=== PATIENT | female | born 1945 | race Two or more races ===

== ENCOUNTER 2017-04-10 13:52 | Emergency (ER) | payer OTHER ==
[2017-04-10 13:59] VITALS: BP 149/79; PULSE 68; TEMP 98.4; BMI 27.0
--- NOTE | 2017-04-10 15:09 | PDOC ---
History of Present Illness - General Chief Complaint: Ear Problem Stated Complaint: SORE THROAT, RT EAR PAIN Time Seen by Provider: 04/10/17 15:09 History Source: Patient Exam Limitations: No Limitations - History of Present Illness Initial Comments: 04/10/17 15:09 CHIEF COMPLAINT: Throat pain HISTORY OF PRESENT ILLNESS: This is a 71 year old female with a history of HTN and hypercholesterolemia who presents for evaluation of right ear pain, throat pain, dry cough, bilateral eye redness/itching/discharge, and nasal congestion. Symptoms started about one week ago after returning from [place]. Her is being seen here with similar symptoms. She denies fevers/chills, chest pain, shortness of breath, or any other symptoms. V/s on arrival are unremarkable. Past History - Travel Traveled outside of the country in the last 30 days: Yes If so, where?: [facility] - Past Medical History Allergies/Adverse Reactions: Allergies Allergy/AdvReac Type Severity Reaction Status Date / Time naproxen [From Naprosyn] Allergy Verified 04/10/17 13:59 Home Medications: Ambulatory Orders Aspirin [Aspirin EC] 81 mg PO DAILY 07/15/16 Atorvastatin Ca [Lipitor] 20 mg PO HS 07/15/16 Calcium Carbonate/Vitamin D3 [Calcium 600 + Vit D Tablet] 1 each PO DAILY Cholecalciferol (Vitamin D3) [Vitamin D3 -] 50,000 unit PO DAILY 07/15/16 Lisinopril [Prinivil] 10 mg PO DAILY 07/15/16 Metoprolol Succinate [Toprol Xl -] 50 mg PO DAILY 07/15/16 Omeprazole 20 mg PO PRN PRN 07/15/16 Azithromycin [Zithromax Tri-Willam (3 DAYS) -] 500 mg PO DAILY #3 tablet 04/10/17 HTN: Yes Hypercholesterolemia: Yes Suicide Attempt (Hx): No - Surgical History Abdominal Surgery: Yes Appendectomy: Yes Cholecystectomy: Yes - Psycho/Social/Smoking Cessation Hx Anxiety: No Suicidal Ideation: No Smoking Status: No Smoking History: Never smoked Number of Cigarettes Smoked Daily: 0 Information on smoking cessation initiated: No Hx Alcohol Use: No Drug/Substance Use Hx: No Substance Use Type: None Review of Systems - Review of Systems Constitutional: No: Chills, Fever HEENTM: Yes: Ear Pain (right), Nose Congestion, Throat Pain Respiratory: Yes: Cough (dry) Cardiac (ROS): No: Chest Pain, Edema, Palpitations ABD/GI: No: Symptoms Reported : No: Symptoms Reported Neurological: No: Symptoms reported *Physical Exam - Vital Signs Last Vital Signs Temp Pulse Resp BP Pulse Ox 98.4 F 68 17 149/79 97 04/10/17 13:57 04/10/17 13:57 04/10/17 13:57 04/10/17 13:57 04/10/17 13:57 - Physical Exam General Appearance: Yes: Nourished, Appropriately Dressed HEENT: positive: EOMI, Pharyngeal Erythema, Nasal Congestion, Rhinorrhea, Sinus Tenderness, TM Dull (right), Other (conjunctivae injected bilaterally) Respiratory/Chest: positive: Lungs Clear, Normal Breath Sounds Cardiovascular: positive: Regular Rhythm, Regular Rate 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 1. Flu swab 2. Rapid strep 3. Tylenol #3 for pain/cough 4. Sudafed for congestion *DC/Admit/Observation/Transfer Diagnosis at time of Disposition: Bronchitis - Discharge Dispostion Disposition: HOME Condition at time of disposition: Stable Admit: No - Prescriptions Prescriptions: Azithromycin [Zithromax Tri-Willam (3 DAYS) -] 500 mg PO DAILY #3 tablet - Patient Instructions Printed Discharge Instructions: DI for Acute Bronchitis Additional Instructions: -Take antibiotics as prescribed. -Use Tobramycin drops: 1 in each eye every 4 hours. Wash sheets and pillowcases in hot water. Discard any eye makeup. -Use [id number] Sudafed as needed for congestion and Robitussin as needed for cough. -Follow up with your primary care doctor. Return here for difficulty breathing or any other concerning symptoms.
[2017-04-10] MEDS ORDERED: ACETAMINOPHEN WITH CODEINE 300MG/30MG TABLET PO ONE (15:16)
[2017-04-10] MEDS ORDERED: PSEUDOEPHEDRINE HCL 30 MG TABLET PO ONE (15:17)
[2017-04-10] MEDS ORDERED: ACETAMINOPHEN WITH CODEINE 300MG/30MG TABLET ONE (15:19)
[2017-04-10] MEDS ORDERED: PSEUDOEPHEDRINE HCL 60 MG TABLET ONE (15:29)
[2017-04-10] MEDS ORDERED: TOBRAMYCIN 0.3% OPHTH SOLN 5 ML BOTTLE OU ONE (15:41)
[2017-04-10] MEDS ORDERED: TOBRAMYCIN 0.3% OPHTH SOLN 5 ML BOTTLE ONE (15:59)
== END 2017-04-10 16:35 | disposition home or self-care (01) ==
LOC: JERFT 13:52
DX: J40 Bronchitis, not specified as acute or chronic (principal); I10 Essential (primary) hypertension; E78.00 Pure hypercholesterolemia, unspecified
CPT/HCPCS: 87070; 87430; 87804; 99281-25

== ENCOUNTER 2017-04-14 09:31 | Emergency (ER) | payer OTHER ==
[2017-04-14 09:35] VITALS: BP 145/72; PULSE 70; TEMP 98.4; BMI 26.6
--- NOTE | 2017-04-14 10:50 | PDOC ---
History of Present Illness - General Chief Complaint: Cold Symptoms Stated Complaint: cough, wants new prescription Time Seen by Provider: 04/14/17 09:52 History Source: Patient Exam Limitations: No Limitations - History of Present Illness Initial Comments: 04/14/17 10:50 Patient is a 71-year-old female, history of hypertension, was seen in the emergency department on 04/10/2017 for sore throat and cough patient was given a azithromycin 500 mg by mouth for 3 days with robitussin, states that symptoms are still persisting unable to sleep at night because of cough. Reports that symptoms started after returning from [facility], Cough is productive with green sputum. Patient denies any fever, no nausea vomiting, no constipation or diarrhea. with similar symptoms. Past Medical History: Denies. Allergies: No known allergies Medications: Azithromycin Family History: Non-contributory Social History: Denies smoking, alcohol use, or IVDU Review of Systems GENERAL/CONSTITUTIONAL: No fever or chills. No weakness. No weight change. HEAD, EYES, EARS, NOSE AND THROAT: No change in vision. No ear pain or discharge. No sore throat. CARDIOVASCULAR: No chest pain or shortness of breath. RESPIRATORY: +Cough, no wheezing, or hemoptysis. GASTROINTESTINAL: No nausea, vomiting, diarrhea or constipation. No rectal bleeding. GENITOURINARY: No dysuria, frequency, or change in urination. MUSCULOSKELETAL: No joint or muscle swelling or pain. No neck or back pain. SKIN : No rash or easy bruising. NEUROLOGIC: No headache, vertigo, loss of consciousness, or loss of sensation. PSYCHIATRIC: No depression or anxiety. ENDOCRINE: No increased thirst. No abnormal weight change. HEMATOLOGIC/LYMPHATIC: No anemia, easy bleeding, or history of blood clots. ALLERGIC/IMMUNOLOGIC: No hives or skin allergy. No latex allergy. Physical Exam: GENERAL: The patient is awake, alert, and fully oriented, in no acute distress. EYES: Pupils equal, round and reactive to light, extraocular movements intact, sclera anicteric, conjunctiva clear. ENT: Ears normal, nares patent, oropharynx clear without exudates. Moist mucous membranes. No uvula deviation NECK: Normal range of motion, supple without lymphadenopathy, JVD, or masses. LUNGS: Breath sounds equal, clear to auscultation bilaterally. No wheezes, and no crackles. HEART: Regular rate and rhythm, normal S1 and S2 without murmur, rub or gallop. ABDOMEN: Soft, nontender, normoactive bowel sounds. No guarding, no rebound. No masses. No bruising or abrasions MUSCULOSKELETAL: Normal range of motion, no edema. No clubbing or cyanosis. No cords, erythema, or tenderness. No CVA Tenderness with fist. NEUROLOGICAL: Cranial nerves II through XII grossly intact. Normal speech, normal gait. SKIN: Warm, Dry, normal turgor, no rashes or lesions noted. Past History - Past Medical History Allergies/Adverse Reactions: Allergies Allergy/AdvReac Type Severity Reaction Status Date / Time naproxen [From Naprosyn] Allergy Verified 04/14/17 09:35 Home Medications: Ambulatory Orders Aspirin [Aspirin EC] 81 mg PO DAILY 07/15/16 Atorvastatin Ca [Lipitor] 20 mg PO HS 07/15/16 Calcium Carbonate/Vitamin D3 [Calcium 600 + Vit D Tablet] 1 each PO DAILY Cholecalciferol (Vitamin D3) [Vitamin D3 -] 50,000 unit PO DAILY 07/15/16 Lisinopril [Prinivil] 10 mg PO DAILY 07/15/16 Metoprolol Succinate [Toprol Xl -] 50 mg PO DAILY 07/15/16 Omeprazole 20 mg PO PRN PRN 07/15/16 Azithromycin [Zithromax Tri-Willam (3 DAYS) -] 500 mg PO DAILY #3 tablet 04/10/17 HTN: Yes Hypercholesterolemia: Yes Suicide Attempt (Hx): No - Surgical History Abdominal Surgery: Yes Appendectomy: Yes Cholecystectomy: Yes - Psycho/Social/Smoking Cessation Hx Anxiety: No Suicidal Ideation: No Smoking Status: No Smoking History: Never smoked Number of Cigarettes Smoked Daily: 0 Information on smoking cessation initiated: No Hx Alcohol Use: No Drug/Substance Use Hx: No Substance Use Type: None *Physical Exam - Vital Signs Last Vital Signs Temp Pulse Resp BP Pulse Ox 98.4 F 70 18 145/72 99 04/14/17 09:33 04/14/17 09:33 04/14/17 09:33 04/14/17 09:33 04/14/17 09:33 ED Treatment Course - RADIOLOGY Radiology Studies Ordered: Category Date Time Status CHEST PA & LAT [RAD] Stat Radiology 04/14/17 10:11 Completed Medical Decision Making - Medical Decision Making 04/14/17 10:59 A/P: Patient with symptoms of viral illness, will DC patient home to continue [id number] cough medicine follow-up with PMD after 7 days of initial onset. Chest x-ray was performed and is negative for pneumonia. Instructions given to patient, she verbalized understanding will follow-up as instructed if symptoms persist. I discussed the physical exam findings, ancillary test results and final diagnoses with the patient. I answered all of the patient's questions. The patient was satisfied with the care received and felt comfortable with the discharge plan and treatment plan. The patient will call to arrange follow-up and will return to the Emergency Department with any new, persistent or worsening symptoms. *DC/Admit/Observation/Transfer Diagnosis at time of Disposition: Bronchitis - Discharge Dispostion Disposition: HOME Condition at time of disposition: Good Admit: No - Referrals Referrals: Pierre Chi [Primary Care Provider] - - Patient Instructions Printed Discharge Instructions: DI for Viral Upper Respiratory Infection -- Adult Additional Instructions: Keep head of bed elevated 45 when sleeping Cough medicine Cool air humidifier Followup in the primary care doctor's office if symptoms persist after 7 days. If any respiratory distress, increased cough, inability to drink, increased wheezing please return immediately to emergency department.
== END 2017-04-14 11:22 | disposition home or self-care (01) ==
LOC: JERFT 09:31
DX: J40 Bronchitis, not specified as acute or chronic (principal); I10 Essential (primary) hypertension; E78.00 Pure hypercholesterolemia, unspecified
CPT/HCPCS: 71020-TC; 99281-25

== ENCOUNTER 2017-04-17 12:20 | Emergency (ER) | payer OTHER ==
[2017-04-17 12:24] VITALS: BP 117/68; PULSE 71; TEMP 98.1; BMI 26.6
--- NOTE | 2017-04-17 13:15 | PDOC ---
History of Present Illness - General Chief Complaint: RX Refill Stated Complaint: RX REFILL Time Seen by Provider: 04/17/17 13:04 History Source: Patient Exam Limitations: No Limitations - History of Present Illness Initial Comments: 04/17/17 13:09 This is a 71-year-old woman with past medical history of hypercholesterolemia and hypertension who presents today with continued dry productive cough with yellow sputum. Her cough is worse in the morning and resolves throughout the day. She has completed the Z-Willam without any relief of cough or symptoms. She has an appointment with her primary doctor in May. Taking promethazine cough syrup with good relief. She is requesting a prescription for Phenergan cough syrup until she can see her primary doctor. She denies fevers, chest pain , shortness of breath, nausea, vomiting, dizziness. Tob- denies ETOH- denies Illicits- denies Timing/Duration: reports: other Past History - Past Medical History Allergies/Adverse Reactions: Allergies Allergy/AdvReac Type Severity Reaction Status Date / Time naproxen [From Naprosyn] Allergy Verified 04/17/17 12:24 Home Medications: Ambulatory Orders Aspirin [Aspirin EC] 81 mg PO DAILY 07/15/16 Atorvastatin Ca [Lipitor] 20 mg PO HS 07/15/16 Calcium Carbonate/Vitamin D3 [Calcium 600 + Vit D Tablet] 1 each PO DAILY Cholecalciferol (Vitamin D3) [Vitamin D3 -] 50,000 unit PO DAILY 07/15/16 Lisinopril [Prinivil] 10 mg PO DAILY 07/15/16 Metoprolol Succinate [Toprol Xl -] 50 mg PO DAILY 07/15/16 Omeprazole 20 mg PO PRN PRN 07/15/16 Phenylephrine HCl/Prometh HCl [Promethazine Vc Syrup] 10 ml PO BID #400 syrup HTN: Yes Hypercholesterolemia: Yes Suicide Attempt (Hx): No - Surgical History Abdominal Surgery: Yes Appendectomy: Yes Cholecystectomy: Yes - Psycho/Social/Smoking Cessation Hx Anxiety: No Suicidal Ideation: No Smoking Status: No Smoking History: Never smoked Number of Cigarettes Smoked Daily: 0 Information on smoking cessation initiated: No Hx Alcohol Use: No Drug/Substance Use Hx: No Substance Use Type: None Review of Systems - Review of Systems Able to Perform ROS?: Yes Is the patient limited Irish proficient: No Constitutional: No: Symptoms Reported HEENTM: No: Symptoms Reported Respiratory: Yes: See HPI Cardiac (ROS): No: Symptoms Reported ABD/GI: No: Symptoms Reported : No: Symptoms Reported Musculoskeletal: No: Symptoms Reported Integumentary: No: Symptoms Reported Neurological: No: Symptoms reported *Physical Exam - Vital Signs Last Vital Signs Temp Pulse Resp BP Pulse Ox 98.1 F 71 19 117/68 99 04/17/17 12:22 04/17/17 12:04/17/17 12:04/17/17 12:04/17/17 12:22 - Physical Exam General Appearance: Yes: Appropriately Dressed. No: Apparent Distress HEENT: positive: EOMI, RACHEL, Normal ENT Inspection Neck: positive: Trachea midline. negative: Supple Respiratory/Chest: positive: Lungs Clear, Normal Breath Sounds. negative: Chest Tender, Respiratory Distress, Accessory Muscle Use Cardiovascular: positive: Regular Rhythm, Regular Rate, S1, S2 Gastrointestinal/Abdominal: positive: Normal Bowel Sounds, Soft. negative: Tender Musculoskeletal: positive: Normal Inspection. 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 Her cough is worse in the morning and resolves throughout the day. She has completed the Z-Willam without any relief of cough or symptoms. She has an appointment with her primary doctor in May. Taking promethazine cough syrup with good relief. She is requesting a prescription for Phenergan cough syrup until she can see her primary doctor. She denies fevers, chest pain , shortness of breath, nausea, vomiting, dizziness. She is refusing chest x-ray and complete workup. Lungs clear to auscultation bilaterally speaking full sentences no wheezes. P: Will prescribe phenergan syrup with strict follow-up and return instructions. I discussed the physical exam findings, ancillary test results and final diagnoses with the patient. I answered all of the patient's questions. The patient was satisfied with the care received and felt comfortable with the discharge plan and treatment plan. The patient will call her primary doctor within 72 hours to arrange follow-up and will return to the Emergency Department with any new, persistant or worsening symptoms. *DC/Admit/Observation/Transfer Diagnosis at time of Disposition: Cough in adult - Discharge Dispostion Disposition: HOME Condition at time of disposition: Stable Admit: No - Prescriptions Prescriptions: Phenylephrine HCl/Prometh HCl [Promethazine Vc Syrup] 10 ml PO BID #400 syrup - Patient Instructions Printed Discharge Instructions: DI for Cough -- Adult
== END 2017-04-17 13:47 | disposition home or self-care (01) ==
LOC: JERFT 12:20
DX: R05 Cough (principal); E78.00 Pure hypercholesterolemia, unspecified
CPT/HCPCS: 99281-25

== ENCOUNTER 2017-12-25 10:31 | Emergency (ER) | payer OTHER ==
[2017-12-25 11:41] VITALS: TEMP 97.8; BMI 13.3
--- NOTE | 2017-12-25 12:01 | PDOC ---
History of Present Illness - General Chief Complaint: Cold Symptoms Stated Complaint: COLD LIKE SYMPTOMS Time Seen by Provider: 12/25/17 11:46 History Source: Patient - History of Present Illness Timing/Duration: reports: yesterday Severity: reports: moderate Associated Symptoms: reports: cough, earache, fever/chills. denies: muscle aches Past History - Past Medical History Allergies/Adverse Reactions: Allergies Allergy/AdvReac Type Severity Reaction Status Date / Time naproxen [From Naprosyn] Allergy Verified 12/25/17 10:48 Home Medications: Ambulatory Orders Aspirin [Aspirin EC] 81 mg PO DAILY 07/15/16 Atorvastatin Ca [Lipitor] 20 mg PO HS 07/15/16 Calcium Carbonate/Vitamin D3 [Calcium 600 + Vit D Tablet] 1 each PO DAILY Cholecalciferol (Vitamin D3) [Vitamin D3 -] 50,000 unit PO DAILY 07/15/16 Lisinopril [Prinivil] 10 mg PO DAILY 07/15/16 Metoprolol Succinate [Toprol Xl -] 50 mg PO DAILY 07/15/16 Omeprazole 20 mg PO PRN PRN 07/15/16 Phenylephrine HCl/Prometh HCl [Promethazine Vc Syrup] 10 ml PO BID #400 syrup HTN: Yes Hypercholesterolemia: Yes - Surgical History Abdominal Surgery: Yes Appendectomy: Yes Cholecystectomy: Yes - Suicide/Smoking/Psychosocial Hx Smoking Status: No Smoking History: Never smoked Number of Cigarettes Smoked Daily: 0 Hx Alcohol Use: No Drug/Substance Use Hx: No Substance Use Type: None Review of Systems - Review of Systems Constitutional: Yes: Chills, Malaise. No: Fever HEENTM: Yes: Ear Pain. No: Throat Pain Respiratory: Yes: Cough. No: Shortness of Breath Cardiac (ROS): No: Chest Pain ABD/GI: No: Diarrhea, Nausea, Vomiting *Physical Exam - Vital Signs Last Vital Signs Temp Pulse Resp BP Pulse Ox 97.8 F 101 H 28 H 88/59 99 12/25/17 11:38 12/25/17 11:38 12/25/17 11:38 12/25/17 11:38 12/25/17 11:38 - Physical Exam General Appearance: Yes: Appropriately Dressed. No: Apparent Distress HEENT: positive: Normal Voice Neck: positive: Supple Respiratory/Chest: positive: Lungs Clear, Normal Breath Sounds. negative: Respiratory Distress Cardiovascular: positive: Regular Rate, S1, S2 Integumentary: positive: Dry, Warm Neurologic: positive: Fully Oriented, Alert, Normal Mood/Affect ED Treatment Course - RADIOLOGY Radiology Studies Ordered: Category Date Time Status CHEST PA & LAT [RAD] Stat Radiology 12/25/17 11:47 Ordered Medical Decision Making - Medical Decision Making 12/25/17 11:54 72 yo F, denies any past medical history here with malaise with productive cough with right ear pain since last night. + chills, no fever, sore throat, shortness of breath, chest pain, nausea, vomiting or diarrhea. No known sick contacts. No recent travel. Patient tachypneic to 28 and mildly tachycardic to 101 at triage, but appears comfortable and in no apparent distress in ER with clear chest, lungs. Suspect viral etiology at this time but will get chest x-ray. Rpt vitals 12/25/17 12:41 CXR negative for acute pathology. Rpt vitals wnl with no intervention. Stable for dc w/ supportive tx and pmd f/u as needed *DC/Admit/Observation/Transfer Diagnosis at time of Disposition: Viral syndrome - Discharge Dispostion Disposition: HOME Condition at time of disposition: Good - Referrals - Patient Instructions Printed Discharge Instructions: DI for Viral Syndrome Additional Instructions: Your cxr was negative for any infection. The cause of your symptoms is most likely viral. Rest and plenty of fluids and take Tylenol as needed for pain - Post Discharge Activity
[2017-12-25 12:40] VITALS: BP 131/70; PULSE 84
== END 2017-12-25 12:49 | disposition home or self-care (01) ==
LOC: JERFT 10:31
DX: B34.9 Viral infection, unspecified (principal); I10 Essential (primary) hypertension; E78.00 Pure hypercholesterolemia, unspecified
CPT/HCPCS: 71046-TC-FY; 99281-25

== ENCOUNTER 2018-02-21 16:59 | Emergency (ER) | payer OTHER ==
[2018-02-21 17:05] VITALS: BMI 44.4
--- NOTE | 2018-02-21 17:43 | PDOC ---
History of Present Illness - General Chief Complaint: Pain Stated Complaint: PAIN Time Seen by Provider: 02/21/18 17:20 History Source: Patient, Spouse Exam Limitations: Language Barrier - History of Present Illness Initial Comments: 02/21/18 17:37 HPI: *Patient's translated Patient is a 72 year old female with no significant PMH presenting to ED for injection of a medication [facility] and for L hip pain radiating down to the calf. Patient states the pain started 1 month ago when she was [facility]. Patient returned yesterday. Pain is worse when she walks, gets better with rest. She was given medications for the pain which does help, but the pain has not gone away. Patient rates the pain 6/10. She feels weaker on the L side compared to the R. She denies injury, fever, chills, SOB, chest pain, abdominal pain, N/V/D, numbness/tingling, swelling. Denies history of blood clots PMH: As per HPI. PSH: None Meds: Allergies: Naproxen Past History - Travel If so, where?: [facility] - Past Medical History Allergies/Adverse Reactions: Allergies Allergy/AdvReac Type Severity Reaction Status Date / Time naproxen [From Naprosyn] Allergy Verified 02/21/18 17:00 Home Medications: Ambulatory Orders NK [No Known Home Medication] 02/21/18 HTN: Yes Hypercholesterolemia: Yes - Surgical History Abdominal Surgery: Yes Appendectomy: Yes Cholecystectomy: Yes - Suicide/Smoking/Psychosocial Hx Smoking Status: No Smoking History: Never smoked Have you smoked in the past 12 months: No Number of Cigarettes Smoked Daily: 0 Information on smoking cessation initiated: No Hx Alcohol Use: No Drug/Substance Use Hx: No Substance Use Type: None Review of Systems - Review of Systems Able to Perform ROS?: Yes Comments:: 02/21/18 17:45 *Patient's translated ROS: Constitutional: No fevers, chills, fatigue, malaise HEENT: No Rhinorrhea, nasal congestion, visual changes Cardiovascular: No chest pain, syncope, palpitations, lightheadedness Respiratory: No Cough, SOB, Hemoptysis, Gastrointestinal: No Abdominal pain, Nausea, Vomiting, Constipation, Diarrhea, Melena Genitourinary: No Dysuria Musculoskeletal: L hip pain radiating down to calf Neurologic: L leg weakness. No Headache, Dizziness, Numbness, Tingling 02/21/18 18:16 *Physical Exam - Vital Signs Last Vital Signs Temp Pulse Resp BP Pulse Ox 98.7 F 61 18 130/86 98 02/21/18 16:59 02/21/18 16:59 02/21/18 16:59 02/21/18 16:59 02/21/18 16:59 - Physical Exam Comments: 02/21/18 17:50 Physical Exam: General Appearance: Patient sitting comfortably in chair. No Apparent Distress HEENT: EOMI, RACHEL. No Pharyngeal Erythema, Tonsillar Exudate, Tonsillar Erythema Respiratory/Chest: Lungs Clear, Normal Breath Sounds. No Crackles, Rales, Rhonchi, Wheezing Cardiovascular: Regular Rhythm, Regular Rate, Peripheral pulses palpable bilaterally. No JVD, Murmur, Gallops, Rubs Gastrointestinal/Abdominal: Normal Bowel Sounds, Soft. No Guarding, Rebound, Tenderness Musculoskeletal: L hip pain upon palpation of ischial spine. No left leg tenderness, no joint swelling, no calf erythema or edema. No leg length discrepancy. 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 Patellar reflex intact. Negative straight leg raise on R and L side. 02/21/18 18:25 Medical Decision Making - Medical Decision Making 02/21/18 18:22 Patient is a 72 year old female with no significant PMH presenting to ED with L hip pain radiating down to the L calf x 1month. No injury, numbness, tingling, swelling, erythema, muscle tenderness. Hip is tender. DDX: osteonecrosis, occult hip fracture, rchanteric bursitis, sciatica, Patient is afebrile, normotensive and HR is wnl. No concern for infectious process. Most likely discharge home in stable condition. Xray results pending. Patient signed out to Dr. Valero 02/21/18 18:56 *DC/Admit/Observation/Transfer Diagnosis at time of Disposition: Hip pain Qualifiers: Laterality: left Qualified Code(s): M25.552 - Pain in left hip - Discharge Dispostion Disposition: HOME Condition at time of disposition: Stable - Referrals Referrals: France Ramirez MD [Primary Care Provider] - - Patient Instructions Additional Instructions: You were seen here today for left hip pain. We gave you Tylenol and a Lidoderm patch in the emergency department to help with pain. You can keep taking Tylenol for pain control. The Xray of your hip showed PENDING Please come back to the emergency department if your pain gets worse, if you fall, or if you develop a new symptom. Please follow up with your primary care doctor. Thank you - Post Discharge Activity
[2018-02-21] MEDS ORDERED: ACETAMINOPHEN 1000 MG/100 ML VIAL (NON FORMULARY) IVPB ONE (18:11)
[2018-02-21] MEDS ORDERED: ACETAMINOPHEN 500 MG TABLET (FP) PO ONE (18:19)
[2018-02-21] MEDS ORDERED: ACETAMINOPHEN 325 MG TABLET (FP) PO ONE (18:20)
[2018-02-21] MEDS ORDERED: ACETAMINOPHEN 325 MG TABLET (FP) ONE (18:21)
[2018-02-21] MEDS ORDERED: LIDOCAINE 5% TOPICAL PATCH TP ONE (18:48)
[2018-02-21] MEDS ORDERED: LIDOCAINE 5% TOPICAL PATCH ONE (18:58)
--- NOTE | 2018-02-21 18:58 | PDOC ---
*Physical Exam - Vital Signs Last Vital Signs Temp Pulse Resp BP Pulse Ox 98.7 F 61 18 130/86 98 02/21/18 16:59 02/21/18 16:59 02/21/18 16:59 02/21/18 16:59 02/21/18 16:59 ED Treatment Course - Medications Given in the ED: ED Medications Discontinued Medications Generic Name Dose Route Start Last Admin Trade Name King PRN Reason Stop Dose Admin Acetaminophen 0 mg 02/21/18 18:11 02/21/18 18:26 Ofirmev Injection - IVPB 02/21/18 18:12 Not Given ONCE ONE Acetaminophen 500 mg 02/21/18 18:19 02/21/18 18:27 Tylenol - PO 02/21/18 18:20 Not Given ONCE ONE Acetaminophen 650 mg 02/21/18 18:20 02/21/18 18:26 Tylenol - PO 02/21/18 18:21 650 mg ONCE ONE Administration Medical Decision Making - Medical Decision Making Pt signed out by Dr. Allen during shift change. You were seen here today for left hip pain. We gave you Tylenol and a Lidoderm patch in the emergency department to help with pain. You can keep taking Tylenol for pain control. The Xray of your hip was negative as read by Dr. Martinez. Please come back to the emergency department if your pain gets worse, if you fall, or if you develop a new symptom. Please follow up with your primary care doctor. Thank you 02/21/18 18:58 Pt x-ray read as negative by Dr. Martinez. Possible calcification near R iliac crest. Pt can follow-up with orthopedics if concerned. 02/21/18 20:59 *DC/Admit/Observation/Transfer Diagnosis at time of Disposition: Hip pain Qualifiers: Laterality: left Qualified Code(s): M25.552 - Pain in left hip - Discharge Dispostion Disposition: HOME Condition at time of disposition: Stable Decision to Admit order: No - Referrals Referrals: France Ramirez MD [Primary Care Provider] - Clark Hopkins MD [Staff Physician] - - Patient Instructions Additional Instructions: You were seen here today for left hip pain. We gave you Tylenol and a Lidoderm patch in the emergency department to help with pain. You can keep taking Tylenol for pain control. The Xray of your hip did not show any fractures. Please come back to the emergency department if your pain gets worse, if you fall, or if you develop a new symptom. Please follow up with your primary care doctor and the orthopedic clinic if pain persists. Thank you - Post Discharge Activity
[2018-02-21 21:25] VITALS: BP 146/60; PULSE 56; TEMP 98.2
[2018-02-21] MEDS ORDERED: LIDOCAINE PATCH REMOVAL MC SCH (22:00)
== END 2018-02-21 21:25 | disposition home or self-care (01) ==
LOC: JER 16:59
DX: M25.552 Pain in left hip (principal)
CPT/HCPCS: 73523-TC-FY; 99283-25

== ENCOUNTER 2018-08-15 08:07 | Emergency (ER) | payer OTHER ==
[2018-08-15 08:28] VITALS: BP 157/75; PULSE 72; TEMP 97.8; BMI 27.6
--- NOTE | 2018-08-15 08:51 | PDOC ---
History of Present Illness - General Chief Complaint: Back Pain Stated Complaint: PAIN Time Seen by Provider: 08/15/18 08:30 History Source: Patient Exam Limitations: No Limitations - History of Present Illness Initial Comments: 08/15/18 08:58 Pt is a 72 y/o F who presents to the ED with low back pain radiating down to her L leg for the past 3 weeks. Pt states she has a hx of sciatica with her last flare in 02/24. She states that her symptoms came on after walking. Her tried to massage her spasm, and she states that pain got worse after that. She is not taking any medication at home for her pain. Denies fevers, chills, pain with urination, frequency, urgency, hematuria, nausea, vomiting, weakness to the extremities, numbness to the extremities, bladder/bowel incontinence and saddle anesthesia. Past History - Travel Traveled outside of the country in the last 30 days: No Close contact w/someone who was outside of country & ill: No - Past Medical History Allergies/Adverse Reactions: Allergies Allergy/AdvReac Type Severity Reaction Status Date / Time naproxen [From Naprosyn] Allergy Verified 08/15/18 08:25 Home Medications: Ambulatory Orders Cyclobenzaprine HCl 5 mg PO HS #10 tablet 08/15/18 Lidocaine 5% Patch [Lidoderm -] 1 patch TP DAILY #7 patch 08/15/18 Methylprednisolone [Medrol Dose Willam] 4 mg PO ASDIR #21 tablet 08/15/18 COPD: No HTN: Yes Hypercholesterolemia: Yes - Surgical History Abdominal Surgery: Yes Appendectomy: Yes Cholecystectomy: Yes - Suicide/Smoking/Psychosocial Hx Smoking Status: No Smoking History: Never smoked Have you smoked in the past 12 months: No Number of Cigarettes Smoked Daily: 0 Information on smoking cessation initiated: No Hx Alcohol Use: No Drug/Substance Use Hx: No Substance Use Type: None Review of Systems - Review of Systems Able to Perform ROS?: Yes Comments:: 08/15/18 08:57 CONSTITUTIONAL: Absent: fever, chills, diaphoresis, generalized weakness, malaise, loss of appetite GASTROINTESTINAL: Absent: abdominal pain, abdominal distension, nausea, vomiting, diarrhea, constipation, melena, hematochezia GENITOURINARY: Absent: dysuria, frequency, urgency, hesitancy, hematuria, flank pain, genital pain MUSCULOSKELETAL: Present: low back pain Absent: arthralgia, joint swelling SKIN: Absent: rash, itching, pallor NEUROLOGIC: Absent: headache, focal weakness or paresthesias, dizziness, unsteady gait, seizure, mental status changes, bladder or bowel incontinence PSYCHIATRIC: Absent: anxiety, depression, suicidal or homicidal ideation, hallucinations. Is the patient limited Georgian proficient: No *Physical Exam - Vital Signs Last Vital Signs Temp Pulse Resp BP Pulse Ox 97.8 F 72 18 157/75 96 08/15/18 08:26 08/15/18 08:26 08/15/18 08:26 08/15/18 08:26 08/15/18 08:26 - Physical Exam Comments: 08/15/18 08:57 GENERAL: Well developed, well nourished. Awake and alert. No acute distress. NECK: Supple. Full ROM. No JVD. Carotid pulses 2+ and symmetric, without bruits. No thyromegaly. No lymphadenopathy. MUSCULOSKELETAL TTP of the L paraspinous muscles, L2-S1, with palpable knot consistent with muscle spasm. (+) straight leg raise on the left. Decreased ROM of the back d.t pain. No midline tenderness. Calves and thighs are soft and with out pain. Normal range of motion at all other joints. No bony deformities or tenderness. No CVA tenderness. EXTREMITIES: No cyanosis. No clubbing. No edema. No calf tenderness. SKIN: Warm and dry. Normal capillary refill. No rashes. No jaundice. NEUROLOGICAL: Alert, awake, appropriate. Cranial nerves 2-12 intact. No deficits to light touch and temperature in face, upper extremities and lower extremities. No motor deficits in the in face, upper extremities and lower extremities. Normoreflexic in the upper and lower extremities. Normal speech. Toes are down- going bilaterally. Gait is normal without ataxia. PSYCHIATRIC: Cooperative. Good eye contact. Appropriate mood and affect. Moderate Sedation - Procedure Monitoring Vital Signs: Procedure Monitoring Vital Signs Temperature 97.8 F 08/15/18 08:26 Pulse Rate 72 08/15/18 08:26 Respiratory Rate 18 08/15/18 08:26 Blood Pressure 157/75 08/15/18 08:26 O2 Sat by Pulse Oximetry (%) 96 08/15/18 08:26 Medical Decision Making - Medical Decision Making 08/15/18 08:57 Pt is a 72 y/o F who presents to the ED with low back pain radiating down to her leg for the past 3 weeks. Pt states she has a hx of sciatica. -Pt with TTP of the L paraspinous muscles, L2-S1, with palpable knot consistent with muscle spasm. (+) straight leg raise on the left. -No trauma, or fever. No saddle anesthesia or bladder/bowel incontinence. No CVA tenderness or rash. -Pt is neurologically intact on exam with no focal findings. -Tramadol given with relief of symptoms -DC home. Ortho follow up given for if symptoms do not resolve. -I discussed the physical exam findings, ancillary test results and final diagnoses with the patient. I answered all of the patient's questions. The patient was satisfied with the care received and felt comfortable with the discharge plan and treatment plan. The Patient agrees to follow up with the primary care physician/specialist within 24-72 hours. Return precautions were given. *DC/Admit/Observation/Transfer Diagnosis at time of Disposition: Left low back pain Qualifiers: Chronicity: acute Sciatica presence: with sciatica Sciatica laterality: sciatica of left side Qualified Code(s): M54.42 - Lumbago with sciatica, left side - Discharge Dispostion Disposition: HOME Condition at time of disposition: Stable Decision to Admit order: No - Prescriptions Prescriptions: Cyclobenzaprine HCl 5 mg PO HS #10 tablet Methylprednisolone [Medrol Dose Willam] 4 mg PO ASDIR #21 tablet - Referrals Referrals: France Ramirez MD [Primary Care Provider] - Vickey Garner MD, FAANS [Staff Physician] - - Patient Instructions Printed Discharge Instructions: DI for Back Pain With Sciatica Additional Instructions: You have low back pain and sciatica due to a muscle spasm. Please take the prednisone as directed. You were also prescribed Flexeril. Please take this medication every 8 hours for the first day. Then take the medication before you go to bed. Do not drive after taking this medication as it may make you sleepy. You may use warm compresses on your back to help with your symptoms. Please follow-up with your primary care doctor. If your symptoms do not resolve in 3-5 days, follow-up with orthopedics. A referral has been provided for you. Return to the emergency department if you have worsening back pain, bladder or bowel incontinence, numbness and tingling in her legs, changes in the way you walk, or any new or worsening symptoms. Tiene dolor lumbar y citica debido a un espasmo muscular. Por favor tome la prednisona segn las indicaciones. Tambin te recetaron Flexeril. [place] medicamento cada 8 horas sonia el primer da. Luego tome el medicamento antes de irse a la cama. No maneje despus de [place] medicamento, ya que puede causarle sueo. Puede usar compresas tibias en la espalda para ayudar con jennifer sntomas. Por favor eve un seguimiento con clark mdico de atencin primaria. Si jennifer sntomas no se resuelven en 3-5 castro, eve un seguimiento con ortopedia. Se moody proporcionado patricia referencia para usted. Regrese a la jovi de emergencias si tiene empeoramiento del dolor de espalda, incontinencia de la vejiga o el intestino, entumecimiento y hormigueo en las piernas, cambios en la forma en que camina, o cualquier sntoma nuevo o que empeora. Print Language: GUINEAN - Post Discharge Activity
[2018-08-15] MEDS ORDERED: traMADol HCL 50 MG TABLET PO ONE (08:54)
[2018-08-15] MEDS ORDERED: LIDOCAINE 5% TOPICAL PATCH TP ONE (09:00)
[2018-08-15] MEDS ORDERED: LIDOCAINE 5% TOPICAL PATCH ONE (09:04)
[2018-08-15] MEDS ORDERED: traMADol HCL 50 MG TABLET ONE (09:05)
[2018-08-15] MEDS ORDERED: LIDOCAINE PATCH REMOVAL MC SCH (22:00)
== END 2018-08-15 09:27 | disposition home or self-care (01) ==
LOC: JERFT 08:07 → JER 08:07 → JERFT 09:27
DX: M54.42 Lumbago with sciatica, left side (principal); I10 Essential (primary) hypertension; E78.00 Pure hypercholesterolemia, unspecified
CPT/HCPCS: 99281-25

== ENCOUNTER → 2020-11-14 | Day surgery (SDC) | payer OTHER | END | disposition home or self-care (01) | LOC: JRADIR 11:06 | PROVIDERS: ATTEND Internal Medicine Endocrinology, Diabetes & Metabolism | PROC: 0G9K3ZX Drainage of Thyroid Gland, Percutaneous Approach, Diagnostic (ICD-10-PCS; principal; 2020-11-14) | DX: E04.1 Nontoxic single thyroid nodule (principal) | CPT/HCPCS: 10005; 76942; 88173; 88305-TC ==

== ENCOUNTER 2021-01-06 22:08 | Emergency (ER) | payer OTHER ==
[2021-01-06 22:27] VITALS: BP 175/73; PULSE 77; TEMP 98.6; BMI 31.4
[2021-01-06] MEDS ORDERED: TRANEXAMIC ACID 1000 MG/10 ML VIAL IVPUSH ONE (22:41)
[2021-01-06] MEDS ORDERED: TRANEXAMIC ACID 1000 MG/10 ML VIAL ONE (22:47)
[2021-01-06] MEDS ORDERED: OXYMETAZOLINE 0.05% NASAL SOLUTION 15 ML BOTTLE NS ONE (23:24)
== END 2021-01-07 01:08 | disposition home or self-care (01) ==
LOC: JER 22:08
PROC: 3E033GC Introduction of Other Therapeutic Substance into Peripheral Vein, Percutaneous Approach (ICD-10-PCS; principal; 2021-01-06)
DX: R04.0 Epistaxis (principal)
CPT/HCPCS: 99284-25

== ENCOUNTER 2021-02-26 14:29 | Emergency (ER) | payer OTHER ==
[2021-02-26 14:48] VITALS: BP 146/77; PULSE 56; TEMP 98.2; BMI 31.3
== END 2021-02-26 16:55 | disposition home or self-care (01) ==
LOC: JER 14:29
DX: R04.0 Epistaxis (principal)
CPT/HCPCS: 99281-25

== ENCOUNTER 2022-09-15 21:26 | Observation (INO) | payer OTHER ==
[2022-09-15] MEDS ORDERED: MAG HYDROX/AL HYDROX/SIMETH 30 ML UNIT-DOSE CUP PO ONE (22:58)
[2022-09-15] MEDS ORDERED: FAMOTIDINE 20 MG/50 ML IVPB 20 MG/50 ML MG IVPB ONE ×2 (22:58→23:31)
[2022-09-15] MEDS ORDERED: ONDANSETRON 4 MG/2 ML VIAL IVPUSH ONE (22:59)
[2022-09-15 23:31] LABS: BASO % 0.2 % (0-2.0); EOS % 0.4 % (0-4.5); HEMATOCRIT 39.6 % (32.4-45.2); HEMOGLOBIN 13.7 GM/dL (10.7-15.3); LYMPH % 20.1 % (8-40); MCH 30.3 pg (25.7-33.7); MCHC 34.7 g/dl (32.0-36.0); MEAN CELL VOLUME 87.6 fl (80-96); MEAN PLT VOLUME 7.8 fl (7.5-11.1); MONO % 7.5 % (3.8-10.2); NEUT % 71.8 % (42.8-82.8); PLATELET COUNT 278 10^3/uL (134-434); RBC 4.53 M/mm3 (3.60-5.2); RDW 13.8 % (11.6-15.6); WHITE BLOOD COUNT 8.8 K/mm3 (4.0-10.0)
[2022-09-15] MEDS ORDERED: MAG HYDROX/AL HYDROX/SIMETH 30 ML UNIT-DOSE CUP ONE (23:31)
[2022-09-15] MEDS ORDERED: ONDANSETRON 4 MG/2 ML VIAL ONE (23:31)
[2022-09-15 23:52] LABS: CALCIUM 9.6 mg/dL (8.5-10.1)
[2022-09-15 23:53] LABS: BLOOD UREA NITROGEN 17.3 mg/dL (7-18)
[2022-09-15 23:57] LABS: TOT PROT 7.7 g/dl (6.4-8.2)
[2022-09-15 23:58] LABS: BILIRUBIN,TOTAL 0.9 mg/dL (0.2-1)
[2022-09-16 00:29] LABS: PH,URINE 7.5 (5.0-8.0); URINE APPEARANCE CLEAR; URINE BILIRUBIN NEGATIVE (NEGATIVE); URINE COLOR YELLOW; URINE GLUCOSE (UA) NEGATIVE (NEGATIVE); URINE KETONE NEGATIVE (NEGATIVE); URINE LEUK ESTERASE NEGATIVE (NEGATIVE); URINE NITRITE NEGATIVE (NEGATIVE); URINE PROTEIN NEGATIVE (NEGATIVE); URINE UROBILINOGEN 0.2 mg/dL (0.2-1.0)
[2022-09-16] MEDS ORDERED: ACETAMINOPHEN 1000 MG/100 ML BAG IVPB PRN (02:00)
[2022-09-16 06:49] LABS: BASO % 0.3 % (0-2.0); EOS % 0.9 % (0-4.5); HEMATOCRIT 38.6 % (32.4-45.2); HEMOGLOBIN 13.3 GM/dL (10.7-15.3); MCH 29.8 pg (25.7-33.7); MCHC 34.4 g/dl (32.0-36.0); MEAN CELL VOLUME 86.7 fl (80-96); MEAN PLT VOLUME 8.4 fl (7.5-11.1); MONO % 8.2 % (3.8-10.2); NEUT % 54.6 % (42.8-82.8); PLATELET COUNT 268 10^3/uL (134-434); RBC 4.46 M/mm3 (3.60-5.2); RDW 13.9 % (11.6-15.6); WHITE BLOOD COUNT 6.7 K/mm3 (4.0-10.0)
[2022-09-16 07:08] LABS: INR 1.13 (0.83-1.09); PROTHROMBIN TIME (PATIENT) 13.1 SEC (9.7-13.0)
[2022-09-16 07:10] LABS: ACTIVATED PTT 29.5 SECONDS (25.2-36.5)
[2022-09-16 07:19] LABS: CALCIUM 9.3 mg/dL (8.5-10.1); MAGNESIUM 2.4 mg/dL (1.8-2.4)
[2022-09-16 07:22] LABS: PHOSPHOROUS 4.7 mg/dL (2.5-4.9)
[2022-09-16 07:23] LABS: CREATININE 0.9 mg/dL (0.55-1.3)
[2022-09-16] MEDS ORDERED: amLODIPine BESYLATE 5 MG TABLET (FP) ONE (09:04)
[2022-09-16] MEDS ORDERED: POLYETHYLENE GLYCOL (HEALTHYLAX) 3350 17 GM PACKET ONE (09:04)
[2022-09-16] MEDS ORDERED: HYDROCHLOROTHIAZIDE 25 MG TABLET (FP) ONE (09:04)
[2022-09-16] MEDS ORDERED: LEVOTHYROXINE NA 25 MCG TABLET (FP) ONE (09:04)
[2022-09-16] MEDS ORDERED: LOSARTAN POTASSIUM 50 MG TABLET ONE (09:04)
[2022-09-16] MEDS ORDERED: PANTOPRAZOLE SODIUM 40 MG VIAL ONE (09:04)
[2022-09-16] MEDS: POLYETHYLENE GLYCOL (HEALTHYLAX) 3350 17 GM PACKET PO SCH ×3 (09:12→22:46)
[2022-09-16] MEDS: LEVOTHYROXINE NA 25 MCG TABLET (FP) PO SCH (09:12)
[2022-09-16] MEDS: LOSARTAN POTASSIUM 50 MG TABLET PO SCH (09:12)
[2022-09-16] MEDS: amLODIPine BESYLATE 5 MG TABLET (FP) PO SCH (09:12)
[2022-09-16] MEDS: HYDROCHLOROTHIAZIDE 25 MG TABLET (FP) PO SCH (09:12)
[2022-09-16] MEDS ORDERED: PATIENT'S OWN MEDICATION (NON-FORMULARY) (Losartan/Hydrochlorothiazide [Losartan-Hctz 100- PO SCH (10:00)
[2022-09-16] MEDS ORDERED: PANTOPRAZOLE SODIUM 40 MG VIAL IVPUSH SCH (10:00)
[2022-09-16] MEDS: PANTOPRAZOLE 40 MG TABLET PO SCH (13:16)
[2022-09-16 13:29] VITALS: BMI 27.2
[2022-09-16] MEDS: ATORVASTATIN CA 20 MG TABLET (FP) PO SCH (22:46)
[2022-09-17] MEDS ORDERED: ACETAMINOPHEN 325 MG TABLET (FP) PO PRN (01:54)
[2022-09-17] MEDS: LEVOTHYROXINE NA 25 MCG TABLET (FP) PO SCH (07:09)
[2022-09-17] MEDS: POLYETHYLENE GLYCOL (HEALTHYLAX) 3350 17 GM PACKET PO SCH ×3 (07:10→22:21)
[2022-09-17] MEDS ORDERED: INSULIN (LEVEMIR) 100 UNITS/ML UNITS SQ ONE (08:22)
[2022-09-17] MEDS: LOSARTAN POTASSIUM 50 MG TABLET PO SCH (09:00)
[2022-09-17] MEDS: PANTOPRAZOLE 40 MG TABLET PO SCH (09:00)
[2022-09-17] MEDS: HYDROCHLOROTHIAZIDE 25 MG TABLET (FP) PO SCH (09:00)
[2022-09-17] MEDS: amLODIPine BESYLATE 5 MG TABLET (FP) PO SCH (09:28)
[2022-09-17] MEDS: ATORVASTATIN CA 20 MG TABLET (FP) PO SCH (22:21)
[2022-09-18] MEDS: POLYETHYLENE GLYCOL (HEALTHYLAX) 3350 17 GM PACKET PO SCH ×2 (06:02→14:11)
[2022-09-18] MEDS: LEVOTHYROXINE NA 25 MCG TABLET (FP) PO SCH (06:02)
[2022-09-18] MEDS ORDERED: amLODIPine BESYLATE 5 MG TABLET (FP) PO SCH (10:00)
[2022-09-18] MEDS: PANTOPRAZOLE 40 MG TABLET PO SCH (10:21)
[2022-09-18] MEDS: LOSARTAN POTASSIUM 50 MG TABLET PO SCH (10:21)
[2022-09-18] MEDS: HYDROCHLOROTHIAZIDE 25 MG TABLET (FP) PO SCH (10:21)
[2022-09-18 13:22] VITALS: BP 110/66; PULSE 79; RESP 20; TEMP 98
== END 2022-09-18 15:36 | disposition home or self-care (01) ==
LOC: JER 21:26 → JERBED 23:58 → J7W 09-16 15:14
PROVIDERS: ADMIT Internal Medicine; ATTEND Family Medicine
PROC: 0DJ08ZZ Inspection of Upper Intestinal Tract, Via Natural or Artificial Opening Endoscopic (ICD-10-PCS; principal; 2022-09-15)
PROC: 3E033NZ Introduction of Analgesics, Hypnotics, Sedatives into Peripheral Vein, Percutaneous Approach (ICD-10-PCS; 2022-09-15)
PROC: 3E033GC Introduction of Other Therapeutic Substance into Peripheral Vein, Percutaneous Approach (ICD-10-PCS; 2022-09-15)
DX: K31.9 Disease of stomach and duodenum, unspecified (principal); K59.00 Constipation, unspecified; E78.5 Hyperlipidemia, unspecified; I10 Essential (primary) hypertension; R07.9 Chest pain, unspecified; R10.13 Epigastric pain; Z88.8 Allergy status to other drugs, medicaments and biological substances
CPT/HCPCS: 0241U-QW; 36415; 71046-TC-FY; 74177-TC; 80048; 80053; 81003; 83605; 83690; 83735; 84100; 84439; 84443; 84484; 85025; 85610; 85730; 87086; 88305-TC; 88342-TC; 93005; 93010; 96365; 96375; 99285-25; G0378; Q9967

== ENCOUNTER 2022-10-07 04:29 | Day surgery (SDC) | payer OTHER ==
[2022-10-03 11:09] VITALS: BMI 26.6
[2022-10-07 09:09] VITALS: TEMP 98
[2022-10-07 14:46] VITALS: BP 134/53; PULSE 56; RESP 17
== END 2022-10-07 10:00 | disposition home or self-care (01) ==
LOC: JASU-ENDO 04:29
PROVIDERS: ATTEND Internal Medicine Gastroenterology
PROC: 0DJD8ZZ Inspection of Lower Intestinal Tract, Via Natural or Artificial Opening Endoscopic (ICD-10-PCS; principal; 2022-10-07 08:45)
DX: K57.30 Diverticulosis of large intestine without perforation or abscess without bleeding (principal); K64.8 Other hemorrhoids

== ENCOUNTER 2022-12-04 07:58 | Emergency (ER) | payer OTHER ==
[2022-12-04 08:06] VITALS: BMI 29.2
[2022-12-04] MEDS ORDERED: ACETAMINOPHEN 1000 MG/100 ML BAG IVPB ONE (08:31)
[2022-12-04] MEDS ORDERED: SODIUM CHLORIDE 0.9% 500 ML INFUS.BAG IV ONE (08:31)
[2022-12-04] MEDS ORDERED: FAMOTIDINE 20 MG/50 ML IVPB 20 MG/50 ML MG IVPB ONE ×2 (08:31→08:49)
[2022-12-04] MEDS ORDERED: ONDANSETRON 4 MG/2 ML VIAL IVPUSH ONE (08:31)
[2022-12-04] MEDS ORDERED: MAG HYDROX/AL HYDROX/SIMETH 30 ML UNIT-DOSE CUP PO ONE (08:31)
[2022-12-04] MEDS ORDERED: ACETAMINOPHEN INJECTION 100 ML IVPB ONE (08:48)
[2022-12-04] MEDS ORDERED: ONDANSETRON 4 MG/2 ML VIAL ONE (08:49)
[2022-12-04] MEDS ORDERED: MAG HYDROX/AL HYDROX/SIMETH 30 ML UNIT-DOSE CUP ONE (08:49)
[2022-12-04 09:50] LABS: HEMATOCRIT 33.8 % (32.4-45.2); HEMOGLOBIN 12.3 GM/dL (10.7-15.3); MCH 30.7 pg (25.7-33.7); MCHC 36.3 g/dl (32.0-36.0); MEAN CELL VOLUME 84.4 fl (80-96); MEAN PLT VOLUME 8.6 fl (7.5-11.1); PLATELET COUNT 327 10^3/uL (134-434); RDW 13.3 % (11.6-15.6); WHITE BLOOD COUNT 6.4 K/mm3 (4.0-10.0)
[2022-12-04 10:09] LABS: ALBUMIN 3.9 g/dl (3.4-5.0); BLOOD UREA NITROGEN 8.9 mg/dL (7-18); CALCIUM 9.4 mg/dL (8.5-10.1); MAGNESIUM 2.1 mg/dL (1.8-2.4)
[2022-12-04 10:12] LABS: CREATININE 0.7 mg/dL (0.55-1.3)
[2022-12-04 10:14] LABS: BILIRUBIN,TOTAL 0.9 mg/dL (0.2-1); TOT PROT 7.6 g/dl (6.4-8.2)
[2022-12-04 12:09] LABS: URINE APPEARANCE CLEAR; URINE BILIRUBIN NEGATIVE (NEGATIVE); URINE COLOR YELLOW; URINE GLUCOSE (UA) NEGATIVE (NEGATIVE); URINE KETONE NEGATIVE (NEGATIVE); URINE LEUK ESTERASE NEGATIVE (NEGATIVE); URINE NITRITE NEGATIVE (NEGATIVE); URINE PROTEIN NEGATIVE (NEGATIVE); URINE UROBILINOGEN 0.2 mg/dL (0.2-1.0)
[2022-12-04 13:29] VITALS: BP 145/71; PULSE 78; RESP 15
[2022-12-04 13:30] VITALS: TEMP 97.8
== END 2022-12-04 14:44 | disposition home or self-care (01) ==
LOC: JER 07:58
PROC: 3E033GC Introduction of Other Therapeutic Substance into Peripheral Vein, Percutaneous Approach (ICD-10-PCS; principal; 2022-12-04)
PROC: 3E033NZ Introduction of Analgesics, Hypnotics, Sedatives into Peripheral Vein, Percutaneous Approach (ICD-10-PCS; 2022-12-04)
PROC: 3E033GC Introduction of Other Therapeutic Substance into Peripheral Vein, Percutaneous Approach (ICD-10-PCS; 2022-12-04)
DX: R10.13 Epigastric pain (principal); R11.10 Vomiting, unspecified; Z20.822 Contact with and (suspected) exposure to COVID-19
CPT/HCPCS: 0241U-QW; 36415; 71045-TC-FY; 80053; 81003; 83690; 83735; 84484; 85027; 87086; 87186; 93005; 93010; 96365; 96375; 99285-25

== ENCOUNTER 2023-07-25 11:21 | Emergency (ER) | payer OTHER ==
[2023-07-25 11:49] VITALS: BP 111/78; PULSE 57; RESP 16; TEMP 98.1; BMI 27.0
[2023-07-25] MEDS ORDERED: ACETAMINOPHEN 500 MG TABLET (FP) PO ONE (12:16)
[2023-07-25] MEDS ORDERED: predniSONE 20 MG TABLET (UD) PO SCH (12:30)
[2023-07-25] MEDS ORDERED: ACETAMINOPHEN 500 MG TABLET (FP) ONE (12:33)
[2023-07-25] MEDS ORDERED: predniSONE 10 MG TABLET (UD) ONE (12:44)
[2023-07-25] MEDS ORDERED: predniSONE 20 MG TABLET (UD) ONE (12:44)
[2023-07-25 15:09] LABS: BASO % 0.4 % (0-2.0); EOS % 0.7 % (0-4.5); HEMATOCRIT 36.4 % (32.4-45.2); HEMOGLOBIN 12.5 GM/dL (10.7-15.3); LYMPH % 16.3 % (8-40); MCH 30.4 pg (25.7-33.7); MCHC 34.5 g/dl (32.0-36.0); MEAN CELL VOLUME 88.1 fl (80-96); MEAN PLT VOLUME 7.6 fl (7.5-11.1); MONO % 3.7 % (3.8-10.2); NEUT % 78.9 % (42.8-82.8); PLATELET COUNT 309 10^3/uL (134-434); RBC 4.13 M/mm3 (3.60-5.2); RDW 13.1 % (11.6-15.6); WHITE BLOOD COUNT 10.1 K/mm3 (4.0-10.0)
[2023-07-25 15:25] LABS: POTASSIUM 4.1 mmol/L (3.5-5.1)
[2023-07-25 15:26] LABS: CALCIUM 8.9 mg/dL (8.5-10.1)
[2023-07-25 15:27] LABS: ALBUMIN 3.8 g/dl (3.4-5.0)
[2023-07-25 15:30] LABS: CREATININE 0.7 mg/dL (0.55-1.3)
[2023-07-25 15:32] LABS: BILIRUBIN,TOTAL 0.7 mg/dL (0.2-1); TOT PROT 7.6 g/dl (6.4-8.2)
== END 2023-07-25 17:01 | disposition home or self-care (01) ==
LOC: JER 11:21
DX: R05.9 Cough, unspecified (principal)
CPT/HCPCS: 36415; 71046-TC-FY; 80053; 84484; 85025; 93005; 93010; 99284-25

== ENCOUNTER 2023-09-22 11:31 | Emergency (ER) | payer OTHER ==
[2023-09-22 11:37] VITALS: BP 126/45; PULSE 54; RESP 18; TEMP 98.1; BMI 27.0
== END 2023-09-22 14:05 | disposition home or self-care (01) ==
LOC: JERFT 11:31
DX: R05.9 Cough, unspecified (principal); Z20.822 Contact with and (suspected) exposure to COVID-19
CPT/HCPCS: 0241U-QW; 99283-25

== ENCOUNTER 2024-07-27 17:23 | Emergency (ER) | payer OTHER ==
[2024-07-27 17:35] VITALS: BP 124/54; PULSE 60; RESP 16; TEMP 98.2; BMI 29.1
[2024-07-27] MEDS ORDERED: MAG HYDROX/AL HYDROX/SIMETH 30 ML UNIT-DOSE CUP ONE (18:46)
[2024-07-27] MEDS ORDERED: ONDANSETRON 4 MG/2 ML VIAL ONE (18:46)
[2024-07-27] MEDS ORDERED: ACETAMINOPHEN INJECTION 100 ML ONE (18:46)
[2024-07-27] MEDS ORDERED: FAMOTIDINE 20 MG/50 ML IVPB 20 MG/50 ML MG IVPB ONE (18:47)
[2024-07-27] MEDS: FAMOTIDINE 20 MG/50 ML IVPB 20 MG/50 ML MG IVPB ONE (19:18)
[2024-07-27] MEDS: MAG HYDROX/AL HYDROX/SIMETH 30 ML UNIT-DOSE CUP PO ONE (19:18)
[2024-07-27] MEDS: ACETAMINOPHEN 1000 MG/100 ML BAG IVPB ONE (19:18)
[2024-07-27] MEDS: ONDANSETRON 4 MG/2 ML VIAL IVPUSH ONE (19:19)
[2024-07-27 19:31] LABS: BASO % 0.3 % (0-2.0); EOS % 0.6 % (0-4.5); HEMATOCRIT 35.5 % (32.4-45.2); HEMOGLOBIN 12.2 GM/dL (10.7-15.3); LYMPH % 29.6 % (8-40); MCH 30.6 pg (25.7-33.7); MCHC 34.3 g/dl (32.0-36.0); MEAN CELL VOLUME 89.1 fl (80-96); MEAN PLT VOLUME 7.3 fl (7.5-11.1); MONO % 8.5 % (3.8-10.2); PLATELET COUNT 306 10^3/uL (134-434); RBC 3.99 M/mm3 (3.60-5.2); RDW 13.5 % (11.6-15.6); WHITE BLOOD COUNT 8.1 K/mm3 (4.0-10.0)
[2024-07-27 19:51] LABS: POTASSIUM 4.1 mmol/L (3.5-5.1)
[2024-07-27 19:53] LABS: CALCIUM 9.2 mg/dL (8.5-10.1)
[2024-07-27 19:54] LABS: ALBUMIN 3.5 g/dl (3.4-5.0); BLOOD UREA NITROGEN 18.5 mg/dL (7-18)
[2024-07-27 19:57] LABS: CREATININE 0.9 mg/dL (0.55-1.3)
[2024-07-27 19:58] LABS: BILIRUBIN,TOTAL 0.6 mg/dL (0.2-1); TOT PROT 7.2 g/dl (6.4-8.2)
== END 2024-07-27 21:02 | disposition home or self-care (01) ==
LOC: JER 17:23
PROC: 3E033GC Introduction of Other Therapeutic Substance into Peripheral Vein, Percutaneous Approach (ICD-10-PCS; principal; 2024-07-27)
PROC: 3E033NZ Introduction of Analgesics, Hypnotics, Sedatives into Peripheral Vein, Percutaneous Approach (ICD-10-PCS; 2024-07-27)
PROC: 3E033GC Introduction of Other Therapeutic Substance into Peripheral Vein, Percutaneous Approach (ICD-10-PCS; 2024-07-27)
DX: R10.84 Generalized abdominal pain (principal); R11.0 Nausea; R42 Dizziness and giddiness; R50.9 Fever, unspecified
CPT/HCPCS: 36415; 71046-TC-FY; 80053; 83690; 84484; 85025; 93005; 93010; 99285-25; J0131